=== PATIENT | female | born 1940 | race Caucasian/White ===

== ENCOUNTER 2021-02-27 09:22 | Day surgery (SDC) | payer OTHER ==
[~2021-02-27] VITALS: Ht 165.1 cm; Wt 79.4 kg
[~2021-02-27 09:22] MED LIST: ALLO300T2 PO; DILT-29 PO; LEVO25TA6 PO; LOSA-39 PO; SIMV-8 PO; mitoMYcin 40 MG in STERILE WATER 60 ML IS ONE
[2021-02-27] MEDS ORDERED: ceFAZolin 1GM/50ML 100 ML IV ONE (10:11)
[2021-02-27] MEDS ORDERED: ROCURONIUM 10MG/ML 10ML VIAL IV ONE (13:45)
[2021-02-27] MEDS ORDERED: PROPOFOL 10 MG/ML 20 ML IV ONE (13:45)
[2021-02-27] MEDS ORDERED: MIDAZOLAM HCL 1MG/1ML-2 ML VIAL ONE (13:53)
[2021-02-27] MEDS ORDERED: fentaNYL CITRATE 100 MCG/2 ML VL ONE (13:53)
[2021-02-27] MEDS ORDERED: ONDANSETRON HCL 4 MG/2 ML VIAL ONE (14:36)
[2021-02-27] MEDS ORDERED: HYDROmorphone HCL 2 MG/ML VL IV PRN (14:45)
[2021-02-27] MEDS ORDERED: ONDANSETRON HCL 4 MG/2 ML VIAL IV PRN (14:45)
[2021-02-27 15:25] VITALS: BP 170/58
== END 2021-02-27 15:45 | disposition home or self-care (01) ==
LOC: SUR 09:22
PROVIDERS: ATTEND Urology
DX: D49.4 Neoplasm of unspecified behavior of bladder (principal); I10 Essential (primary) hypertension; E03.9 Hypothyroidism, unspecified; M10.9 Gout, unspecified; Z79.899 Other long term (current) drug therapy; Z20.822 Contact with and (suspected) exposure to COVID-19; Z98.890 Other specified postprocedural states; Z91.041 Radiographic dye allergy status; Z90.10 Acquired absence of unspecified breast and nipple; Z96.611 Presence of right artificial shoulder joint
CPT/HCPCS: 52234; 88305; J0690; J2250; J2405; J2704; J3010; J9280; U0003

== ENCOUNTER 2022-02-19 08:56 | Day surgery (SDC) | payer OTHER ==
[~2022-02-19] VITALS: Ht 165.1 cm; Wt 81.6 kg
[~2022-02-19 08:56] MED LIST changes: +POTA-167 PO; -mitoMYcin 40 MG in STERILE WATER 60 ML IS ONE
[2022-02-19] MEDS ORDERED: mitoMYcin 40 MG in STERILE WATER 80 ML IS ONE (09:45)
[2022-02-19] MEDS ORDERED: mitoMYcin 40 MG in STERILE WATER 60 ML IS ONE (10:15)
[2022-02-19] MEDS ORDERED: CIPROFLOXACIN 400MG/200ML 200 ML IV ONE (10:18)
[2022-02-19] MEDS ORDERED: MIDAZOLAM HCL 2MG/2ML 2ml VIAL (1mg/ml) ONE (10:22)
[2022-02-19] MEDS ORDERED: fentaNYL CITRATE 100 MCG/2 ML VL ONE (10:22)
[2022-02-19] MEDS ORDERED: MEPERIDINE HCL (25 MG/ML) 1ML VIAL ONE (10:22)
[2022-02-19] MEDS ORDERED: MORPHINE SULFATE 4 MG/ML SYR/VIAL IV PRN (10:30)
[2022-02-19] MEDS ORDERED: LABETALOL HCL 5 MG/ML 4ML SYRINGE IV PRN (10:30)
[2022-02-19] MEDS ORDERED: ePHEDrine SULFATE 50 MG/ML AMP IV PRN (10:30)
[2022-02-19] MEDS ORDERED: ONDANSETRON HCL 4 MG/2 ML VIAL IV PRN (10:30)
[2022-02-19] MEDS ORDERED: HYDROmorphone HCL 2 MG/ML VL/or syr IV PRN (10:30)
[2022-02-19] MEDS ORDERED: MIDAZOLAM HCL 2MG/2ML 2ml VIAL (1mg/ml) IV PRN (10:30)
[2022-02-19] MEDS ORDERED: DexAMETHasone SOD PHOS 10MG/1ML VIAL INJ ONE (11:06)
[2022-02-19] MEDS ORDERED: PROPOFOL 10 MG/ML 20 ML IV ONE (11:06)
[2022-02-19 12:27] VITALS: BP 155/56
== END 2022-02-19 12:50 | disposition home or self-care (01) ==
LOC: SUR 08:56
PROVIDERS: ATTEND Urology
DX: C67.9 Malignant neoplasm of bladder, unspecified (principal); I10 Essential (primary) hypertension; E03.9 Hypothyroidism, unspecified; E78.5 Hyperlipidemia, unspecified; M10.9 Gout, unspecified; E87.6 Hypokalemia; Z98.890 Other specified postprocedural states; Z79.899 Other long term (current) drug therapy; Z88.5 Allergy status to narcotic agent; Z82.49 Family history of ischemic heart disease and other diseases of the circulatory system; Z83.3 Family history of diabetes mellitus; Z87.891 Personal history of nicotine dependence; Z20.822 Contact with and (suspected) exposure to COVID-19
CPT/HCPCS: 52240; 88305; 88342; J0744; J1100; J2175; J2250; J2704; J3010; J9280; U0003

== ENCOUNTER → 2022-08-06 | Day surgery (SDC) | payer OTHER ==
[~2022-08-06] VITALS: Ht 165.1 cm; Wt 81.6 kg
[~2022-08-06] MED LIST changes: +CIPROFLOXACIN 400MG/200ML 200 ML IV ONE; +DexAMETHasone SOD PHOS 10MG/1ML VIAL INJ ONE; +HYDROmorphone HCL 2 MG/ML VL/or syr IV PRN; +METOCLOPRAMIDE HCL 5MG/ml INJ 2ml VIAL IV PRN; +MIDAZOLAM HCL 2MG/2ML 2ml VIAL (1mg/ml) ONE; +MORPHINE SULFATE 4 MG/ML SYR/VIAL IV PRN; +ONDANSETRON HCL 4 MG/2 ML VIAL ONE; -POTA-167 PO; +PROPOFOL 10 MG/ML 20 ML IV ONE; +PROPOFOL 100 ML IV ONE; +SODIUM CHLORIDE LOCK 10 ML ONE; +fentaNYL CITRATE 100 MCG/2 ML VL ONE; +mitoMYcin 40 MG in STERILE WATER 60 ML IS ONE
[2022-08-06 10:30] VITALS: BP 169/80
== END | disposition home or self-care (01) ==
LOC: SUR 06:30
PROVIDERS: ATTEND Urology
DX: N30.20 Other chronic cystitis without hematuria (principal); Z85.51 Personal history of malignant neoplasm of bladder; Z98.890 Other specified postprocedural states; I10 Essential (primary) hypertension; Z79.899 Other long term (current) drug therapy; N32.81 Overactive bladder; Z20.822 Contact with and (suspected) exposure to COVID-19
CPT/HCPCS: 51720; 52234; 88305; J0744; J1100; J2250; J2405; J2704; J3010; J9280; U0003

== ENCOUNTER 2023-06-10 06:56 | Day surgery (SDC) | payer OTHER ==
[~2023-06-10] VITALS: Ht 165.1 cm; Wt 81.6 kg
[~2023-06-10 06:56] MED LIST changes: -CIPROFLOXACIN 400MG/200ML 200 ML IV ONE; -DexAMETHasone SOD PHOS 10MG/1ML VIAL INJ ONE; -HYDROmorphone HCL 2 MG/ML VL/or syr IV PRN; -LOSA-39 PO; +LOSA100T58 PO; -METOCLOPRAMIDE HCL 5MG/ml INJ 2ml VIAL IV PRN; -MIDAZOLAM HCL 2MG/2ML 2ml VIAL (1mg/ml) ONE; -MORPHINE SULFATE 4 MG/ML SYR/VIAL IV PRN; -ONDANSETRON HCL 4 MG/2 ML VIAL ONE; -PROPOFOL 10 MG/ML 20 ML IV ONE; -PROPOFOL 100 ML IV ONE; -SIMV-8 PO; +SIMV20TA20 PO; -SODIUM CHLORIDE LOCK 10 ML ONE; -fentaNYL CITRATE 100 MCG/2 ML VL ONE; -mitoMYcin 40 MG in STERILE WATER 60 ML IS ONE
[2023-06-10] MEDS ORDERED: CIPROFLOXACIN 400MG/200ML 200 ML IV ONE (07:42)
[2023-06-10] MEDS ORDERED: fentaNYL CITRATE 100 MCG/2 ML VL ONE (09:02)
[2023-06-10] MEDS ORDERED: MIDAZOLAM HCL 2MG/2ML 2ml VIAL (1mg/ml) ONE (09:03)
[2023-06-10] MEDS ORDERED: LIDOCAINE 2% (LOCAL ANESTH.) PF 5ml SDV ONE (09:12)
[2023-06-10] MEDS ORDERED: PROPOFOL 10 MG/ML 20 ML IV ONE (09:12)
[2023-06-10] MEDS ORDERED: ONDANSETRON HCL 4 MG/2 ML VIAL ONE (09:12)
[2023-06-10] MEDS ORDERED: ROCURONIUM 10MG/ML 10ML VIAL IV ONE (09:25)
[2023-06-10] MEDS ORDERED: LIDOCAINE 2% JELLY 11ml (GLYDO) ONE (09:41)
[2023-06-10 10:00] VITALS: BP 158/63; PULSE 5; RESP 19; TEMP 97.5; O2SAT 98
[2023-06-10] MEDS ORDERED: NEOSTIGMINE 1 MG/ML INJ (10mg/10ML VIAL) ONE (10:03)
[2023-06-10] MEDS ORDERED: GLYCOPYRROLATE 0.2 MG/ML 1ML VIAL ONE (10:03)
[2023-06-10 10:15] VITALS: PULSE 74; O2SAT 99
== END 2023-06-10 11:00 | disposition home or self-care (01) ==
LOC: SUR 06:56
PROVIDERS: ATTEND Urology
DX: D09.0 Carcinoma in situ of bladder (principal); N30.00 Acute cystitis without hematuria; N33 Bladder disorders in diseases classified elsewhere; I10 Essential (primary) hypertension; E78.5 Hyperlipidemia, unspecified; E03.9 Hypothyroidism, unspecified; Z91.041 Radiographic dye allergy status; Z87.891 Personal history of nicotine dependence; Z79.890 Hormone replacement therapy; Z79.899 Other long term (current) drug therapy; Z98.890 Other specified postprocedural states; Z90.710 Acquired absence of both cervix and uterus
CPT/HCPCS: 52224; 88305; J0744; J2001; J2250; J2405; J2704; J3010; J7030